=== PATIENT | female | born 1980 | race Caucasian/White ===

== ENCOUNTER 2016-11-28 12:33 | Emergency (ER) ==
[2016-11-28 12:39] VITALS: BP 146/80; TEMP 98.6; BMI 32.5
[2016-11-28 13:20] LABS: BASOPHILS # (AUTO) 0.1 K/uL (0-0.2); BASOPHILS % (AUTO) 0.7 % (0.0-3.0); EOSINOPHILS # (AUTO) 0.4 K/ul (0.0-0.7); HEMATOCRIT 33.6 % (37.0-47.0); HEMOGLOBIN 10.4 g/dl (12.0-16.0); IMMATURE GRANULOCYTE % (AUTO) 0.1 % (0.0-5.0); LYMPHOCYTES # (AUTO) 1.8 K/uL (0.60-3.4); LYMPHOCYTES % (AUTO) 25.7 (10.0-50.0); MEAN CORPUSCULAR HEMOGLOBIN 22.5 pg (27.0-31.0); MEAN CORPUSCULAR VOLUME 72.7 fl (81.0-99.0); MONOCYTES # (AUTO) 0.4 K/uL (0.4-2.0); MONOCYTES % (AUTO) 5.7 (0-10); NEUTROPHILS # (AUTO) 4.4 K/ul (2.0-6.9); NEUTROPHILS % (AUTO) 62.8; PLATELET COUNT 227 10^3/uL (140-440); RED BLOOD COUNT 4.62 10^6/ul (4.20-5.40); WHITE BLOOD COUNT 7.04 K/ul (4.6-10.2)
[2016-11-28 13:38] LABS: SERUM PREGNANCY INTERNAL QC INTERNAL QC VALID
[2016-11-28 13:43] LABS: ALBUMIN 3.3 g/dL (3.4-5.0); ALBUMIN/GLOBULIN RATIO 0.79; ANION GAP 10.9; BILIRUBIN,TOTAL 0.27 mg/dL (0.00-1.20); BUN/CREATININE RATIO 19.04; CALCIUM 9.2 mg/dL (8.2-10.2); CREATININE 0.84 mg/dL (0.60-1.30); POTASSIUM 3.9 mmol/L (3.5-5.10); TOTAL PROTEIN 7.5 g/dL (6.4-8.2); TROPONIN I 0.013 ng/ml (0.0000-0.4000)
--- NOTE | 2016-11-28 14:00 | ED.PDOC ---
General ED Provider: Dr. CATARINO ALLAN Chief Complaint: Weakness Stated Complaint: PALPITATION Time Seen by Physician: 12:33 (NEAR SYNCOPE ON 1 OCCASION SEEN WITH FAMILY IN THE ROOM AT ALL TIMES ) Mode of Arrival: Walk-In Information Source: Patient Exam Limitations: No limitations Primary Care Provider: RICH MYLES Nursing and Triage Documentation Reviewed and Agree: Yes Cardiovascular Complaint Exam - Palpitations Complaint/Exam Onset/Duration: TODAY Symptoms Are: Still present Timing: Intermittent Initial Severity: Mild Current Severity: None Character: Reports: Pounding Aggravating: Reports: None Alleviating: Reports: None Associated Signs and Symptoms: Denies: Lightheadedness, Dizziness, Syncope, Chest pain, Shortness of breath, Diaphoresis, Nausea, Vomiting Related History: Similar episode Related Surgical History: Reports: None Cardiac Risk Factors: Reports: None Pulmonary Embolism Risk Factors: Reports: None Atrial Fibrillation Risk Factors: Reports: None Thyroid Exam: Normal Quality Indicators for AMI: EKG in 10min. Quality Indicators for Cardiac Chest Pain: EKG in 10min. Quality Indicator For Non-Traumatic Chest Pain/Syncope: EKG Performed Review of Systems - Review Of Systems Constitutional: Reports: No symptoms Eyes: Reports: No symptoms Ears, Nose, Mouth, Throat: Reports: No symptoms Respiratory: Reports: No symptoms Cardiac: Reports: Palpitations GI: Reports: No symptoms : Reports: No symptoms Musculoskeletal: Reports: No symptoms Skin: Reports: No symptoms Neurological: Reports: No symptoms Endocrine: Reports: No symptoms Hematologic/Lymphatic: Reports: No symptoms All Other Systems: Reviewed and Negative Past Medical History - Past Medical History Previously Healthy: Yes Endocrine: Reports: None Cardiovascular: Reports: None Respiratory: Reports: None Hematological: Reports: None Gastrointestinal: Reports: None Genitourinary: Reports: None Neuro/Psych: Reports: None Musculoskeletal: Reports: None Cancer: Reports: None Last Menstrual Period: 3 WEEKS AGO - Surgical History General Surgical History: Reports: None - Family History Family History: Reports: None - Social History Smoking Status: Never smoker Hx Substance Use: No Alcohol Screening: None Physical Exam - Physical Exam Appearance: Well-appearing, No pain distress, Well-nourished Eyes: REBECCA, EOMI, Conjunctiva clear ENT: Ears normal, Nose normal, Oropharynx normal Respiratory: Airway patent, Breath sounds clear, Breath sounds equal, Respirations nonlabored Cardiovascular: RRR, Pulses normal, No rub, No murmur GI/: Soft, Nontender, No masses, Bowel sounds normal, No Organomegaly Musculoskeletal: Normal strength, ROM intact, No edema, No calf tenderness Skin: Warm, Dry, Normal color Neurological: Sensation intact, Motor intact, Reflexes intact, Cranial nerves intact, Alert, Oriented Psychiatric: Affect appropriate, Mood appropriate Interpretation - EKG Interpretation Rate: Normal Rhythm: Sinus Ectopy: None [place]: NL ST Segment: Normal Critical Care Note - Critical Care Note Total Time (mins): 0 Course - Course Hematology/Chemistry: 11/28/16 13:10 11/28/16 13:10 Orders, Labs, Meds: Lab Review 11/28/16 11/28/16 11/28/16 13:10 13:10 13:10 WBC 7.04 RBC 4.62 Hgb 10.4 L Hct 33.6 L MCV 72.7 L MCH 22.5 L MCHC 31.0 L RDW Coeff of Ronald 15.8 H Plt Count 227 Immature Gran % (Auto) 0.1 Neut % (Auto) 62.8 Lymph % (Auto) 25.7 [place] % (Auto) 5.7 Eos % (Auto) 5.0 Baso % (Auto) 0.7 Immature Gran # (Auto) 0.0 Neut # 4.4 Lymph # 1.8 [place] # 0.4 Eos # 0.4 Baso # 0.1 Sodium 140 Potassium 3.9 Chloride 108 H Carbon Dioxide 25 Anion Gap 10.9 BUN 16 Creatinine 0.84 Estimated GFR (MDRD) 76.00 BUN/Creatinine Ratio 19.04 Glucose 82 Calcium 9.2 Total Bilirubin 0.27 AST 14 L ALT 13 Alkaline Phosphatase 117 H Total Creatine Kinase 70 Troponin I 0.0130 Total Protein 7.5 Albumin 3.3 L Globulin 4.2 Albumin/Globulin Ratio 0.79 Serum , Qual Negative Orders Category Date Time Status EKG-(ED ONLY) Stat CARDIO 11/28/16 13:07 Ordered HOLTER MONITOR-(ED ONLY) Stat CARDIO 11/28/16 13:56 Ordered CBC W/ AUTO DIFF Stat LAB 11/28/16 13:10 Completed COMPREHENSIVE METABOLIC PANEL Stat LAB 11/28/16 13:10 Completed CREATINE KINASE Stat LAB 11/28/16 13:10 Completed SERUM Stat LAB 11/28/16 13:10 Completed TROPONIN I Stat LAB 11/28/16 13:10 Completed URINE DRUG SCREEN (RAPID FOR ED) [DRUG SCREEN, URINE, LAB 11/28/16 13:51 Received RAPID] Stat CHEST, 2 VIEWS PA & LAT Stat RADS 11/28/16 13:07 Taken Vital Signs: Temp Pulse Resp BP Pulse Ox 11/28/16 12:33 98.6 F 85 18 146/80 H 98 VAMSI Risk Score VAMSI Risk Score: Risk Score Odds of by 30D 0 0.1 (0.1-0.2) 1 0.3 (0.2-0.3) 2 0.4 (0.3-0.5) 3 0.7 (0.6-0.9) 4 1.2 (1.0-1.5) 5 2.2 (1.9-2.6) 6 3.0 (2.5-3.6) 7 4.8 (3.8-6.1) Departure - Departure Time of Disposition: 14:00 Disposition: HOME SELF-CARE Discharge Problem: Heart palpitations Instructions: Palpitations (ED), Near Syncope (ED) Condition: Good Pt referred to PMD for follow-up: Yes Additional Instructions: Please call your Family Physician as soon as possible to schedule a follow-up appointment. Allergies/Adverse Reactions: Allergies sulfamethoxazole [From Bactrim] Adverse Reaction (Verified 11/28/16 12:39) trimethoprim [From Bactrim] Adverse Reaction (Verified 11/28/16 12:39) Home Medications: Ambulatory Orders Cetirizine HCl [Zyrtec] 10 mg PO DAILY 11/28/16 Citalopram Hydrobromide [Celexa] 20 mg PO DAILY 11/28/16 Lamotrigine [Lamictal] 25 mg PO DAILY 11/28/16 Disposition Discussed With: Patient, Family
[2016-11-28 14:07] LABS: COCAIN SCREEN,URINE NEGATIVE (NEGATIVE)
--- NOTE | 2016-11-28 14:10 | DI ---
EXAM: Two-view chest. HISTORY: Chest pain. COMPARISON: 10/08/2011 FINDINGS: AP and lateral views of the chest. The lungs are clear without consolidation or effusion. The heart size and pulmonary vasculature is normal. There is no pneumothorax. There is a stable no dule in the left costophrenic angle. The osseous structures are normal for age. The aorta is unremar kable. IMPRESSION: No acute pulmonary disease.
--- NOTE | 2016-12-01 11:05 | HOLTER ---
PATIENT INFORMATION AND COMMENTS Attending Physician: RICH MYLES Indications: PALPITATIONS, NEAR SYNCOPE __ Patient Medications: ZYRTEC, CELEXA, LAMICTAL __ Pre-procedure Summary: Protocol: Standard Heart Rate Started: 11/25/2016 1418 Minimum: 47 Weight: 190 LBS Ended: 11/29/2016 1356 Maximum: 141 Height: 64" Duration: 23 HRS 38 MIN Average: 72 _ INTERPRETATIONS/OBSERVATIONS: 1. BASIC RHYTHM: SINUS RATE 47 BPM TO 130 BPM, AVERAGE 70 BPM 2. RARE PAC"S AND PVC"S WITH COUPLET 3. NO ST-T WAVE CHANGES FROM BASELINE 4. ACTIVITY LOG NOT AVAILABLE MTDD
== END 2016-11-28 14:54 | disposition home or self-care (01) ==
LOC: ED 12:33
DX: D64.9 Anemia, unspecified (principal); R00.2 Palpitations; R55 Syncope and collapse; R53.1 Weakness
CPT/HCPCS: 36415; 80053; 80306; 82550; 84439; 84443; 84484; 84703; 85025; 93005; 93010; 99283

== ENCOUNTER 2017-02-15 00:44 | Emergency (ER) ==
[2017-02-15 00:56] VITALS: BP 146/91; TEMP 99.2; BMI 33.6
[2017-02-15] MEDS ORDERED: SODIUM CHLORIDE 1,000 ML IV STA ×2 (01:11→01:12)
[2017-02-15] MEDS ORDERED: ZOFRAN 4 MG/2 ML IVP STA (01:12)
--- NOTE | 2017-02-15 01:26 | ED.PDOC ---
General ED Provider: Dr. QUINCY DUNN-ER Chief Complaint: Nausea/Vomiting Stated Complaint: im vomiting and having diarrhea Time Seen by Physician: 00:50 Mode of Arrival: Walk-In Information Source: Patient Exam Limitations: No limitations Primary Care Provider: RICH MYLES Nursing and Triage Documentation Reviewed and Agree: Yes GI Complaint Exam - Vomiting/Diarrhea Complaint/Exam Onset/Duration: 5hrs agao Symptoms Are: Still present Initial Severity: Mild Current Severity: Moderate Character of Vomiting: Reports: Non-bilious Character of Diarrhea: Reports: Watery Aggravating: Reports: Food Alleviating: Reports: None Associated Signs and Symptoms: Reports: Cramping Recent Positive Test: No Use of Oral Contraceptives: No Use of Depoprovera: No Compliant With Contraceptive Use: No Non-GI Risk Factors: Reports: None Kussmaul Respirations Present: No Differential Diagnoses: Viral Gastroenteritis, Bacterial Gastroenteritis, UTI Review of Systems - Review Of Systems Constitutional: Reports: No symptoms Eyes: Reports: No symptoms Ears, Nose, Mouth, Throat: Reports: No symptoms Respiratory: Reports: No symptoms Cardiac: Reports: No symptoms GI: Reports: Nausea, Vomiting : Reports: No symptoms Musculoskeletal: Reports: No symptoms Skin: Reports: No symptoms Neurological: Reports: No symptoms Endocrine: Reports: No symptoms Hematologic/Lymphatic: Reports: No symptoms All Other Systems: Reviewed and Negative Past Medical History - Past Medical History Previously Healthy: Yes Endocrine: Reports: None Cardiovascular: Reports: None Respiratory: Reports: None Hematological: Reports: None Gastrointestinal: Reports: None Genitourinary: Reports: None Neuro/Psych: Reports: None Musculoskeletal: Reports: None Cancer: Reports: None Last Menstrual Period: 2 weeks - Surgical History General Surgical History: Reports: None - Family History Family History: Reports: None - Social History Smoking Status: Never smoker Hx Substance Use: No Alcohol Screening: None - Immunizations Tetanus Shot up to Date: Yes Physical Exam - Physical Exam Appearance: Well-appearing, No pain distress, Well-nourished Pain Distress: Mild Eyes: REBECCA, EOMI, Conjunctiva clear ENT: Ears normal, Nose normal, Oropharynx normal Neck: Supple Respiratory: Airway patent Cardiovascular: RRR, Pulses normal, No rub, No murmur GI/: Soft, Nontender, No masses, Bowel sounds normal, No Organomegaly Musculoskeletal: Normal strength, ROM intact, No edema, No calf tenderness Skin: Warm, Dry, Normal color Neurological: Sensation intact, Motor intact, Reflexes intact, Cranial nerves intact, Alert, Oriented Psychiatric: Affect appropriate, Mood appropriate Interpretation - Radiology Interpretation Radiology Interpretation By: Radiologist Radiology Results: Positive Exam Interpreted: CT Scan Critical Care Note - Critical Care Note Total Time (mins): 0 Course - Course Hematology/Chemistry: 02/15/17 02:00 02/15/17 02:00 Orders, Labs, Meds: Lab Review 02/15/17 02/15/17 02/15/17 02:00 02:00 02:00 WBC 9.26 RBC 4.82 Hgb 12.3 Hct 38.1 MCV 79.0 L MCH 25.5 L MCHC 32.3 RDW Coeff of Ronald 16.3 H Plt Count 178 Immature Gran % (Auto) 0.3 Neut % (Auto) 92.0 Lymph % (Auto) 2.7 L [place] % (Auto) 3.7 Eos % (Auto) 1.1 Baso % (Auto) 0.2 Immature Gran # (Auto) 0.0 Neut # 8.5 H Lymph # 0.3 L [place] # 0.3 L Eos # 0.1 Baso # 0.0 Sodium 139 Potassium 3.6 Chloride 108 H Carbon Dioxide 23 Anion Gap 11.6 BUN 16 Creatinine 0.70 Estimated GFR (MDRD) 94.00 BUN/Creatinine Ratio 22.85 Glucose 105 Calcium 8.3 Total Bilirubin 0.71 AST 13 L ALT 7 L Alkaline Phosphatase 110 H Total Creatine Kinase 50 Troponin I < 0.0100 Total Protein 7.1 Albumin 3.3 L Globulin 3.8 Albumin/Globulin Ratio 0.87 Amylase 45 Lipase 24 Serum , Qual Negative Urine Color Urine Clarity Urine pH Ur Specific [place] Urine Protein Urine Glucose (UA) Urine Ketones Urine Blood Urine Nitrite Urine Bilirubin Urine Urobilinogen Ur Leukocyte Esterase Influenza A (Rapid) Influenza B (Rapid) 02/15/17 02/15/17 02:25 04:05 WBC RBC Hgb Hct MCV MCH MCHC RDW Coeff of Ronald Plt Count Immature Gran % (Auto) Neut % (Auto) Lymph % (Auto) [place] % (Auto) Eos % (Auto) Baso % (Auto) Immature Gran # (Auto) Neut # Lymph # [place] # Eos # Baso # Sodium Potassium Chloride Carbon Dioxide Anion Gap BUN Creatinine Estimated GFR (MDRD) BUN/Creatinine Ratio Glucose Calcium Total Bilirubin AST ALT Alkaline Phosphatase Total Creatine Kinase Troponin I Total Protein Albumin Globulin Albumin/Globulin Ratio Amylase Lipase Serum , Qual Urine Color Yellow Urine Clarity Clear Urine pH 8.5 Ur Specific [place] 1.020 Urine Protein Negative Urine Glucose (UA) Negative Urine Ketones Negative Urine Blood Negative Urine Nitrite Negative Urine Bilirubin Negative Urine Urobilinogen 0.2 Ur Leukocyte Esterase Negative Influenza A (Rapid) Negative Influenza B (Rapid) Negative Orders Category Date Time Status EKG-(ED ONLY) Stat CARDIO 02/15/17 01:11 Completed IV [ED IV/MEDIPORT/POWERPORT] .ONCE EMERGENCY 02/15/17 01:11 Active AMYLASE Stat LAB 02/15/17 02:00 Completed CBC W/ AUTO DIFF Stat LAB 02/15/17 02:00 Completed COMPREHENSIVE METABOLIC PANEL Stat LAB 02/15/17 02:00 Completed CREATINE KINASE Stat LAB 02/15/17 02:00 Completed LIPASE Stat LAB 02/15/17 02:00 Completed MOLECULAR GROUP A STREP Stat LAB 02/15/17 02:30 Results RAPID FLU A/B Stat LAB 02/15/17 04:05 Completed SERUM Stat LAB 02/15/17 02:00 Completed STREP SCREEN Stat LAB 02/15/17 02:30 Results TROPONIN I Stat LAB 02/15/17 02:00 Completed URINALYSIS C & S IF INDICATED Stat LAB 02/15/17 02:25 Completed 0.9 % Sodium Chloride [Saline Flush] MEDS 02/15/17 01:11 Ordered 1 syr IVF PRN PRN Ketorolac Tromethamine [Toradol] MEDS 02/15/17 03:58 Discontinued 30 mg IVP ONCE STA Morphine Sulfate [Morphine 2 mg/ml Syringe] MEDS 02/15/17 03:58 Discontinued 2 mg IVP ONCE STA Ondansetron HCl/Pf [Zofran 4 mg/2 ml] MEDS 02/15/17 01:12 Discontinued 4 mg IVP ONCE STA Sodium Chloride 0.9% [Sodium Chloride] 1,000 ml MEDS 02/15/17 01:11 Discontinued IV BOLUS Sodium Chloride 0.9% [Sodium Chloride] 1,000 ml MEDS 02/15/17 01:[address] ABDOMEN/PELVIS WO CONTRAST Stat RADS 02/15/17 01:12 Completed Medications Generic Name Dose Route Start Last Admin Trade Name Freq PRN Reason Stop Dose Admin Sodium Chloride 1 syr 02/15/17 01:11 02/15/17 01:31 Saline Flush IVF 1 syr PRN PRN Administration To flush IV Discontinued Medications Generic Name Dose Route Start Last Admin Trade Name Freq PRN Reason Stop Dose Admin Sodium Chloride 1,000 mls @ 1,000 mls/hr 02/15/17 01:11 02/15/17 01:31 Sodium Chloride IV 02/15/17 02:10 1,000 mls/hr BOLUS STA Administration Sodium Chloride 1,000 mls @ 1,000 mls/hr 02/15/17 01:12 02/15/17 02:26 Sodium Chloride IV 02/15/17 02:11 1,000 mls/hr BOLUS STA Administration Ketorolac Tromethamine 30 mg 02/15/17 03:58 02/15/17 04:15 Toradol IVP 02/15/17 03:59 30 mg ONCE STA Administration Morphine Sulfate 2 mg 02/15/17 03:58 02/15/17 04:15 Morphine 2 Mg/Ml Syringe IVP 02/15/17 03:59 2 mg ONCE STA Administration Ondansetron HCl 4 mg 02/15/17 01:12 02/15/17 01:31 Zofran 4 Mg/2 Ml IVP 02/15/17 01:13 4 mg ONCE STA Administration Vital Signs: Temp Pulse Resp BP Pulse Ox 02/15/17 00:47 99.2 F 107 H 20 146/91 H 97 Departure - Departure Time of Disposition: 04:53 Disposition: HOME SELF-CARE Discharge Problem: Gastroenteritis Instructions: Dehydration (ED), Gastroenteritis (ED) Condition: Good Pt referred to PMD for follow-up: Yes Additional Instructions: please see your pcp and get referral to your senior storage engineer to look at right ovary--the radiologist thinks its larger than the left one Allergies/Adverse Reactions: Allergies sulfamethoxazole [From Bactrim] Adverse Reaction (Verified 02/15/17 00:56) Hives trimethoprim [From Bactrim] Adverse Reaction (Verified 02/15/17 00:56) Home Medications: Ambulatory Orders Cetirizine HCl [Zyrtec] 10 mg PO DAILY 11/28/16 Citalopram Hydrobromide [Celexa] 20 mg PO DAILY 11/28/16 Lamotrigine [Lamictal] 25 mg PO DAILY 11/28/16 Ferrous Sulfate [Iron] 325 mg PO DAILY 02/15/17 Disposition Discussed With: Patient, Family
[2017-02-15 02:19] LABS: BASOPHILS % (AUTO) 0.2 % (0.0-3.0); EOSINOPHILS # (AUTO) 0.1 K/ul (0.0-0.7); EOSINOPHILS % (AUTO) 1.1 % (0.0-7.0); HEMATOCRIT 38.1 % (37.0-47.0); HEMOGLOBIN 12.3 g/dl (12.0-16.0); IMMATURE GRANULOCYTE % (AUTO) 0.3 % (0.0-5.0); LYMPHOCYTES # (AUTO) 0.3 K/uL (0.60-3.4); LYMPHOCYTES % (AUTO) 2.7 (10.0-50.0); MEAN CORPUSCULAR HEMOGLOBIN 25.5 pg (27.0-31.0); MEAN CORPUSCULAR HGB CONC 32.3 (31.8-35.4); MONOCYTES # (AUTO) 0.3 K/uL (0.4-2.0); MONOCYTES % (AUTO) 3.7 (0-10); NEUTROPHILS # (AUTO) 8.5 K/ul (2.0-6.9); PLATELET COUNT 178 10^3/uL (140-440); RED BLOOD COUNT 4.82 10^6/ul (4.20-5.40); WHITE BLOOD COUNT 9.26 K/ul (4.6-10.2)
[2017-02-15 02:30] LABS: SERUM PREGNANCY INTERNAL QC INTERNAL QC VALID
[2017-02-15 02:38] LABS: BILIRUBIN,URINE Negative (NEGATIVE); KETONES,URINE Negative (NEGATIVE); LEUKOCYTE ESTERASE ,URINE Negative (NEGATIVE); NITRITE,URINE Negative (NEGATIVE); PH,URINE 8.5 (5-9); PROTEIN,URINE Negative (NEGATIVE); URINE, BLOOD Negative (NEGATIVE)
[2017-02-15 02:42] LABS: ADD URINE MICROSCOPIC NO
--- NOTE | 2017-02-15 03:05 | CT ---
Exam: CT of the abdomen and pelvis without contrast History: Vomiting Technique: [address] of the abdomen and pelvis without intravascular contrast FINDINGS: Granulomatous calcifications in the left lung base. The lung bases are clear otherwise. Gallbladder is distended without pericholecystic inflammation. No significant liver abnormality. The adrenals, pancreas and spleen are unremarkable. The stomach and hiatus are unremarkable.The right augustina al collecting system is slightly prominent compared with contralateral side but still within normal l imits. There is no hydronephrosis, inflammation or urolithiasis. The appendix is normal. Bowel loop s demonstrate normal caliber. No inflamatory change seen in the mesentery or retroperitoneum. Vascula r structures appear normal. Prominent right ovary measuring 4.6 x 3.5 cm. No pelvic fat inflammation. No free pelvic fluid. No rmal pelvic bowel loops. No acute abnormality of the skeleton. Partial articulation defects of L5. Impression: 1. No inflammatory process, bowel or urinary obstruction is seen. 2. Prominent right ovary compared with contralateral side. 3. Interval resolution of right lower abdomen subcutaneous fat collection compared with 06/24/2016.
[2017-02-15 03:16] LABS: ALANINE AMINOTRANSFERASE 7 U/L (12-78); ALBUMIN 3.3 g/dL (3.4-5.0); ALBUMIN/GLOBULIN RATIO 0.87; ALKALINE PHOSPHATASE 110 U/L (42-98); AMYLASE 45 U/L (25-115); ANION GAP 11.6; ASPARTATE AMINO TRANSFERASE 13 U/L (15-37); BILIRUBIN,TOTAL 0.71 mg/dL (0.00-1.20); BLOOD UREA NITROGEN 16 mg/dL (7-18); BUN/CREATININE RATIO 22.85; CALCIUM 8.3 mg/dL (8.2-10.2); CARBON DIOXIDE 23 mmol/L (21-32); CHLORIDE 108 mmol/L (98-107); CREATINE KINASE 50 U/L; GLUCOSE 105 mg/dL (70-110); LIPASE 24 U/L (8-78); POTASSIUM 3.6 mmol/L (3.5-5.10); SODIUM 139 mmol/L (136-145); TOTAL PROTEIN 7.1 g/dL (6.4-8.2)
[2017-02-15] MEDS ORDERED: MORPHINE 2 MG/ML SYRINGE IVP STA (03:58)
[2017-02-15] MEDS ORDERED: TORADOL IVP STA (03:58)
[2017-02-15 04:46] LABS: FLU INTERNAL QC INTERNAL QC VALID; RAPID FLU A NEGATIVE (NEGATIVE); RAPID FLU B NEGATIVE (NEGATIVE)
== END 2017-02-15 04:58 | disposition home or self-care (01) ==
LOC: ED 00:44
DX: K52.9 Noninfective gastroenteritis and colitis, unspecified (principal)
CPT/HCPCS: 36415; 80053; 81001; 82150; 82550; 83690; 84484; 84703; 85025; 87651; 87804; 87880; 93005; 93010; 96360; 96361; 96375; 99283